=== PATIENT | male | born 1980 | race Two or more races ===

== ENCOUNTER → 2017-08-11 | Outpatient (REF) | payer OTHER | LOC: M SMT 12:15 | DX: Z30.2 Encounter for sterilization (principal) ==

== ENCOUNTER → 2017-10-08 | Outpatient (REF) | payer OTHER ==
[2017-10-08 14:03] LABS: IMMOTILE SPERM ABSENT (ABSENT); MOTILE SPERM ABSENT (ABSENT); MOTILE SPERM CENTRIFUGED ABSENT (ABSENT); SEMEN APPEARANCE OPAQUE (OPAQUE); SEMEN VISCOSITY VISCOUS (LIQUID); SEMEN VOLUME 1.1 ml (4.0-5.0); SEMEN pH 8.5 (7.0-8.0); WBC CONCENTRATION >1 M/ml (<=1 M/ml)
[2017-10-08 14:04] LABS: IMMMOTILE SPERM CENTRIFUGED PRESENT (ABSENT)
== END ==
LOC: M SMT 13:32
DX: Z98.52 Vasectomy status (principal)

== ENCOUNTER → 2017-11-03 | Outpatient (CLI) | payer OTHER | LOC: M RAD 14:30 | DX: J34.89 Other specified disorders of nose and nasal sinuses (principal) | CPT/HCPCS: 70486 ==

== ENCOUNTER → 2017-12-28 | Outpatient (REF) | payer OTHER, MEDICAID | LOC: M SFHCLERA 10:02 | DX: J02.9 Acute pharyngitis, unspecified (principal) ==

== ENCOUNTER → 2019-03-28 | Outpatient (CLI) | payer BC ==
[2019-03-28 19:57] LABS: LDH LACTATE DEHYDROGENASE 210 U/L (87-241)
== END ==
LOC: M PLALAB 14:10
PROVIDERS: ATTEND Nurse Practitioner Family
DX: N50.9 Disorder of male genital organs, unspecified (principal)

== ENCOUNTER → 2019-03-31 | Outpatient (CLI) | payer BC ==
--- NOTE | 2019-03-31 20:55 | REP ---
Scrotal sonography: History: Testicular lump, 1 year status post vasectomy. Lump times 1 week. Findings: High-resolution bilateral scrotal sonography shows no evidence of intratesticular mass lesion on either side. Right testis measures 4.4 x 2.7 x 3.2 cm. Left testicular dimensions are 4.5 x 2.8 x 2.9 cm. Adjacent to the epididymal tail in the right hemiscrotum there is a 9 x 10 x 9 mm well-defined solid appearing hyperechoic nodule corresponding to a palpable lump. There is a minimal right-sided hydrocele. No evidence of varicocele or hernia. Testicular Doppler flow is normal bilaterally. Resistive indices are 0.56 on the left and 0.71 on the right by Doppler. Impression: No intratesticular lesion is seen. There is a 10 mm extratesticular nodule adjacent the inferior pole of the epididymis on the right corresponding to the palpable abnormality. Question sperm granuloma. Electronically Signed by Jamie Wen MD 04/01/2019 07:59 A
== END ==
LOC: M RAD 14:20
PROVIDERS: ATTEND Nurse Practitioner Family
DX: N50.9 Disorder of male genital organs, unspecified (principal); N64.52 Nipple discharge; R92.2 Inconclusive mammogram

== ENCOUNTER 2020-12-30 17:50 | Emergency (ER) | payer BC ==
[~2020-12-30] VITALS: Ht 180.3 cm; Wt 112.8 kg
--- OUTSIDE RECORDS SUMMARY | 2020-12-30 17:57 | CCD ---
Author Author [facility] Organization [facility] Address Unknown Phone Unavailable Care Team Providers Care Purification Director Name Role Phone Berenice Lynn MD Unavailable Unavailable Berenice yLnn MD Unavailable Unavailable Berenice Lynn MD Unavailable Unavailable Berenice Lynn MD Unavailable Unavailable Berenice Lynn MD Unavailable Unavailable Berenice Lynn MD Unavailable Unavailable Berenice Lynn MD Unavailable Unavailable Berenice Lynn MD Unavailable Unavailable Berenice Lynn MD Unavailable Unavailable Berenice Lynn MD Unavailable Unavailable Berenice Lynn MD Unavailable Unavailable Berenice Lynn MD Unavailable Unavailable Berenice Lynn MD Unavailable Unavailable Berenice Lynn MD Unavailable Unavailable Berenice Lynn MD Unavailable Unavailable Berenice Lynn MD Unavailable Unavailable Berenice Lynn MD Unavailable Unavailable Berenice Lynn MD Unavailable Unavailable Berenice Lynn MD Unavailable Unavailable Berenice Lynn MD Unavailable Unavailable Berenice Lynn MD Unavailable Unavailable Berenice Lynn MD Unavailable Unavailable Berenice Lynn MD Unavailable Unavailable Berenice Lynn MD Unavailable Unavailable Berenice Lynn MD Unavailable Unavailable Benítez, M Christopher PA-C Unavailable Unavailable Benítez, M Christopher PA-C Unavailable Unavailable Benítez, M Christopher PA-C Unavailable Unavailable Benítez, M Christopher PA-C Unavailable Unavailable Benítez, M Christopher PA-C Unavailable Unavailable Benítez, M Christopher PA-C Unavailable Unavailable Benítez, M Christopher PA-C Unavailable Unavailable Benítez, M Christopher PA-C Unavailable Unavailable Benítez, M Christopher PA-C Unavailable Unavailable Benítez, M Christopher PA-C Unavailable Unavailable Benítez, M Christopher PA-C Unavailable Unavailable Benítez, M Christopher PA-C Unavailable Unavailable Benítez, M Christopher PA-C Unavailable Unavailable Benítez, M Christopher PA-C Unavailable Unavailable Benítez, M Christopher PA-C Unavailable Unavailable Benítez, M Christopher PA-C Unavailable Unavailable Benítez, M Christopher PA-C Unavailable Unavailable Benítez, M Christopher PA-C Unavailable Unavailable Benítez, M Christopher PA-C Unavailable Unavailable Benítez, M Christopher PA-C Unavailable Unavailable Benítez, M Christopher PA-C Unavailable Unavailable Benítez, M Christopher PA-C Unavailable Unavailable Benítez, M Christopher PA-C Unavailable Unavailable Benítez, M Christopher PA-C Unavailable Unavailable Benítez, M Christopher PA-C Unavailable Unavailable Benítez, M Christopher PA-C Unavailable Unavailable Re-disclosure Warning The records that you are about to access may contain information from federally-assisted alcohol or drug abuse programs. If such information is present, then the following federally mandated warning applies: This information has been disclosed to you from records protected by federal confidentiality rules (42 CFR part 2). The federal rules prohibit you from making any further disclosure of this information unless further disclosure is expressly permitted by the written consent of the person to whom it pertains or as otherwise permitted by 42 CFR part 2. A general authorization for the release of medical or other information is NOT sufficient for this purpose. The Federal rules restrict any use of the information to criminally investigate or prosecute any alcohol or drug abuse patient.The records that you are about to access may contain highly sensitive health information, the redisclosure of which is protected by Article 27-F of the [facility] Public Health law. If you continue you may have access to information: Regarding HIV / AIDS; Provided by facilities licensed or operated by the [facility] Office of Mental Health; or Provided by the [facility] Office for People With Developmental Disabilities. If such information is present, then the following [facility] mandated warning applies: This information has been disclosed to you from confidential records which are protected by state law. State law prohibits you from making any further disclosure of this information without the specific written consent of the person to whom it pertains, or as otherwise permitted by law. Any unauthorized further disclosure in violation of state law may result in a fine or senior care sentence or both. A general authorization for the release of medical or other information is NOT sufficient authorization for further disc losure. Family History Family Member Name Family Member Gender Family Member Status Date o f Status Description Data Source(s) Unknown Unknown Problem MEDENT ([facility], ) Unknown Male Problem [facility] ([facility] Encounters Encounter Providers Location Date Indications Data Source(s ) Outpatient Attender: Courtney Lynn MD 1 08:11:31 PM EDT - 12/20/2020 08:36:02 PM EDT [facility] [address] [facility] [id number] 08/16/2020 12:00:00 AM EDT eCW1 ([facility]) Unknown [address] [facility] [id number] 08/01/2020 12:00:00 AM EDT eCW1 ([facility]) Outpatient Attender: Nixon Benítez PA-C 06/17/2020 01:45:22 PM EDT - 06/17/2020 03:03:15 PM EDT [facility] ([facility]) Medications No Information Insurance Providers Payer name Policy type / Coverage type Policy ID Covered green party ID Covered green party's relationship to alvarez Policy Alvarez Plan Information [employer] [place] [employer] [id number] Self 1 [id number] [place] [employer] Commercial [id number] Self 1 [id number] [facility] [id number] Self 1 [id number] [facility] [id number] Self 1 [id number] [facility] [id number] Self 1 [id number] [employer] and Blue Shield - [place] Blue Cross/B lue Shield [id number] Self [id number] RPR- Needs Payer Match [id number] Self [id number] MEDICAID [id number] SP [id number] [facility] COMM[facility] [id number] SP [id number] BLUE CROSS BLUE SHIELD -O/P [id number] 18 [id number] ANSI-Medicaid [id number] ANSI-Commercial [id number] ANSI-Medicaid [id number] ANSI-Commercial [id number] [place]BS [place] PPO 302/307 [id number] SP [id number] ANSI-Medicaid [id number] ANSI-Commercial [id number] ANSI-Medicaid [id number] ANSI-Medicaid [id number] ANSI-Commercial [id number] ANSI-Medicaid [id number] ANSI-Medicaid [id number] FANY [id number] SP [id number] ANSI-Medicaid [id number] [facility] [id number] SP [id number] ANSI-Medicaid [id number] ANSI-Medicaid [id number] ANSI-Commercial [id number] ANSI-Medicaid [id number] ANSI-Medicaid [id number] ANSI-Commercial [id number] [facility] Health Maintenance Organization ([facility] [id number] Self [id number] [facility] O [id number] S [id number] BCBS [place] PPO 302/307 [id number] SP [id number] BCBS [facility] [id number] SP [id number] [facility] Health Maintenance Organization ([facility]) [id number] Self [id number] [employer] BCBS B [id number] S [id number] ANSI-Commercial [id number] Problems, Conditions, and Diagnoses No Information Surgeries/Procedures No Information Results ID Date Data Source [id number] 12/20/2020 08:30:00 PM EDT [facility] Name Value Range Interpretation Code Description Data Carina rce(s) Supporting Document(s) SARS-CoV-2 RNA Resp Ql [facility]+probe DETECTED [facility] This lab was ordered by NELLY tabor and reported by NELLY Rosa. ID Date Data Source [id number] 06/19/2020 01:51:00 PM EDT [facility] Name Value Range Interpretation Code Description Data Carina rce(s) Supporting Document(s) COVID-19 RT-PCR NASAL SWAB Not Detected Not Detected [employer] A not detected (negative) test result fo r this test means that SARS-CoV-2 RNA was not present in the specimen above the limit ofdetection. Laboratory test results should always be considered in thecontext of clinical observations and epidemiological data in making afinal diagnosis and patient management decisions. Results will bereported to government agencies as required.This test has received Emergency Use Authorization (EUA). We will continue to follow federal and state requirements for COVID-19 reporting. This test has been authorized only for the detection of RNAfrom SARS-CoV-2 virus and diagnosis of SARS-CoV-2 virus infection, notfor any other viruses or pathogens. This test is only authorized for the duration of the declaration that circumstances exist justifying the authorization of the emergency use of in vitro diagnostic tests for detection of SARS-CoV-2 virus and/or diagnosis of SARS-CoV-2 virusinfection under section 564(b)(1) of the Act, 21 U.S.C. section 360bbb-3(b)(1), unless the authorization is terminated or revoked sooner. We will continue to follow federal and state requirements for both notification of results and any confirmatory testing that is required by another agency. This test was developed and its performance characteristics determined by [employer] and verified at [employer]. It has not been cleared or approved by the U.S. Food and Drug Administration for diagnostic use. This test has been authorized by FDA under an EUA for use by authorized laboratories. Results should be used in conjunction with clinical findings, and should not form the sole basis for a diagnosis or treatment decision. Methods: SARS-CoV-2 Multiplex RT-PCR Assay ID Date Data Source [id number] 06/17/2020 02:00:00 PM EDT [facility] Name Value Range Interpretation Code Description Data Carina rce(s) Supporting Document(s) SARS-CoV-2 (COVID-19) N gene [Presence] in Respiratory specimen by ALLYSON with probe detection NEGATIVE [facility] This lab was ordered by [facility] and reported by [employer]. ID Date Data Source [id number] 06/17/2020 12:00:00 AM EDT [facility] Name Value Range Interpretation Code Description Data Carina rce(s) Supporting Document(s) Carestart Rapid COVID Antigen Test Negative [facility] This lab was reported by Onel arana. Procedure Social History Code Duration Value Status Description Data Source(s ) Smoking 08/16/2020 12:00:00 AM EDT Never Smoker completed Never S moker eCW1 ([facility]) Vital Signs ID Date Data Source UNK Name Value Range Interpretation Code Description Data Source(s) Body weight 250 [lb_av] 250 [lb_av] eCW1 ([facility]) Body height 71 [in_i] 71 [in_i] eCW1 ([facility]) Body mass index (BMI) [Ratio] 34.86 kg/m2 34.86 kg/m2 eCW1 ([facility]) Heart rate 72 /min 72 /min eCW1 ([facility]) Respiratory rate 18 /min 18 /min eCW1 ([facility]) Body temperature 96.6 [degF] 96.6 [degF] eCW1 ( [facility]) Systolic blood pressure 118 mm[Hg] 118 mm[Hg] e CW1 ([facility]) Diastolic blood pressure 80 mm[Hg] 80 mm[Hg] eCW1 ([facility])
[2020-12-30 20:46] VITALS: BP 124/72
--- OUTSIDE RECORDS SUMMARY | 2020-12-31 00:48 | CCD ---
Author Author [facility] Organization [facility] Address Unknown Phone Unavailable Care Team Providers Care Distiller Name Role Phone Berenice Lynn MD Unavailable Unavailable Berenice Lynn [...] is protected by Article 27-F of the [facility] Public Health law. If you continue you may have access to information: Regarding HIV / AIDS; Provided by facilities licensed or operated by the [facility] Office of Mental Health; or Provided by the [facility] Office for People With Developmental Disabilities. If such information is present, then the following [facility] mandated warning applies: This information has been [...] law may result in a fine or assisted sentence or both. A general authorization for the release of medical or other information is NOT sufficient authorization for further disc losure. Family History Family Member Name Family Member Gender Family Member Status Date o f Status Description Data Source(s) Unknown Unknown Problem MEDENT ([facility], ) Unknown Male Problem [facility]ENT ([facility] Encounters Encounter Providers Location Date Indications Data Source(s ) Outpatient Attender: Courtnye Lynn MD 1 08:11:31 PM EDT - 12/20/2020 08:36:02 PM EDT [facility] [address] [facility] [id number] 08/16/2020 12:00:00 AM EDT eCW1 ([facility]) Unknown [address] [facility] [address] 08/01/2020 12:00:00 AM EDT eCW1 ([facility]) Outpatient Attender: Nixon Benítez PA-C 06/17/2020 01:45:22 PM EDT - 06/17/2020 03:03:15 PM EDT [facility] ([facility]) Medications No Information Insurance Providers Payer name Policy type / Coverage type Policy ID Covered alliance party ID Covered alliance party's relationship to alvarez Policy Alvarez Plan Information [place] [employer] [id number] Self 1 [id number] [place] [employer] Commercial [id number] Self 1 [id number] [facility] [id number] Self 1 [id number] [facility] [id number] Self 1 [id number] [facility] [id number] Self 1 [id number] [facility] Blue [facility] and Blue Shield - [place] Blue Cross/B lue Shield [id number] Self [id number] RPR- Needs Payer Match [id number] Self [id number] BLUE CROSS BLUE SHIELD -O/P [id number] ANSI-Medicaid [id number] ANSI-Commercial [id number] ANSI-Medicaid [id number] ANSI-Commercial [id number] ANSI-Medicaid [id number] ANSI-Commercial [id number] ANSI-Medicaid [id number] ANSI-Medicaid [id number] BCBS [facility] HMO [id number] SP [id number] ANSI-Medicaid [id number] ANSI-Medicaid [id number] ANSI-Commercial [id number] ANSI-Medicaid [id number] [facility] COMMUNITY PLAN MCDO [id number] SP [id number] ANSI-Medicaid [id number] ANSI-Medicaid [id number] ANSI-Commercial [id number] ANSI-Medicaid [id number] ANSI-Medicaid [id number] ANSI-Commercial [id number] [facility] ([facility]) [id number] Self [id number] [facility] O [id number] S [id number] [facility] ([facility]) [id number] Self [id number] ANSI-Commercial [id number] BCBS [place] PPO 302/307 [id number] SP [id number] [employer] BCBS B [id number] S YNC [id number] BCBS [place] PPO 302/307 [id number] SP [id number] FANY [id number] SP [id number] MEDICAID [id number] SP [id number] [facility] [id number] SP [id number] Problems, Conditions, and Diagnoses No Information Surgeries/Procedures No Information Results ID Date Data Source [id number] 12/20/2020 08:30:00 PM EDT [facility] Name Value Range Interpretation Code Description Data Carina rce(s) Supporting Document(s) SARS-CoV-2 RNA Resp Ql ALLYSON+probe DETECTED [facility] This lab was ordered by NELLY tabor and reported by NELLY Rosa. ID Date Data Source [id number] 06/19/2020 01:51:00 PM EDT [facility] Name Value Range Interpretation Code Description Data Carina rce(s) Supporting Document(s) COVID-19 RT-PCR NASAL SWAB Not Detected Not Detected [employer] A not detected (negative) test result fo [...] developed and its performance characteristics determined by [employer] and verified at [employer]. It has not been cleared or approved by the U.S. Food and Drug Administration for diagnostic use. This test has been authorized by FDA under an EUA for use by authorized laboratories. Results should be used in conjunction with clinical findings, and should not form the sole basis for a diagnosis or treatment decision. Methods: SARS-CoV-2 Multiplex RT-PCR Assay ID Date Data Source [id number] 06/17/2020 02:00:00 PM EDT [facility] Name Value Range Interpretation Code Description Data Carina rce(s) Supporting Document(s) SARS-CoV-2 (COVID-19) N gene [Presence] in Respiratory specimen by ALLYSON with probe detection NEGATIVE [facility] This lab was ordered by [facility] and reported by [employer]. ID Date Data Source [id number] 06/17/2020 12:00:00 AM EDT [facility] Name Value Range Interpretation Code Description Data Carina rce(s) Supporting Document(s) Carestart Rapid COVID Antigen Test Negative [facility] This lab was reported by Onel arana. Procedure Social History Code Duration Value Status Description Data Source(s ) Smoking 08/16/2020 12:00:00 AM EDT Never Smoker completed Never S moker eCW1 ([facility]) Vital Signs ID Date Data Source UNK Name Value Range Interpretation Code Description Data Source(s) Body weight 250 [lb_av] 250 [lb_av] eCW1 ([facility]) Body height 71 [in_i] 71 [in_i] eCW1 ([facility]) Body mass index (BMI) [Ratio] 34.86 kg/m2 34.86 kg/m2 eCW1 ([facility]) Heart rate 72 /min 72 /min eCW1 ([facility]) Respiratory rate 18 /min 18 /min eCW1 ([facility]) Body temperature 96.6 [degF] 96.6 [degF] eCW1 ( [facility]) Systolic blood pressure 118 mm[Hg] 118 mm[Hg] e CW1 ([facility]) Diastolic blood pressure 80 mm[Hg] 80 mm[Hg] eCW1 ([facility])
== END 2020-12-31 00:17 | disposition left against medical advice (07) ==
LOC: M ED 17:50
DX: Z53.21 Procedure and treatment not carried out due to patient leaving prior to being seen by health care provider (principal)

== ENCOUNTER 2020-12-31 11:20 | Emergency (ER) | payer BC ==
[~2020-12-31] VITALS: Ht 180.3 cm; Wt 112.3 kg
--- OUTSIDE RECORDS SUMMARY | 2020-12-31 11:28 | CCD ---
Author Author [facility] Organization [facility] Address Unknown Phone Unavailable Care Team Providers Care Qa Tech Name Role Phone Berenice Lynn MD Unavailable [...] Unavailable Berenice Lynn MD Unavailable Unavailable Berenice Lnyn MD Unavailable Unavailable Berenice Lynn MD Unavailable Unavailable Benítze, M Christopher PA-C Unavailable Unavailable Benítez, M [...] is protected by Article 27-F of the [facility] [place] Public Health law. If you continue you may have access to information: Regarding HIV / AIDS; Provided by facilities licensed or operated by the [facility] [place] Office of Mental Health; or Provided by the [facility] [place] Office for People With Developmental Disabilities. If such information is present, then the following [facility] [place] mandated warning applies: This information has been [...] law may result in a fine or longterm sentence or both. A general authorization for the release of medical or other information is NOT sufficient authorization for further disc losure. Family History Family Member Name Family Member Gender Family Member Status Date o f Status Description Data Source(s) Unknown Unknown Problem MEDENT ([facility], ) Unknown Male Problem MEDENT ([facility] Encounters Encounter Providers Location Date Indications Data Source(s ) Outpatient Attender: Courtney Lynn MD 1 08:11:31 PM EDT - 12/20/2020 08:36:02 PM EDT [facility] Outpatient [address] [facility] [id number] 08/16/2020 12:00:00 AM EDT eCW1 ([facility]) Unknown [address] [facility] [id number] 08/01/2020 12:00:00 AM EDT eCW1 ([facility]) Outpatient Attender: Nixon Benítez PA-C 06/17/2020 01:45:22 PM EDT - 06/17/2020 03:03:15 PM EDT [facility] ([facility]) Medications No Information Insurance Providers Payer name Policy type / Coverage type Policy ID Covered green party ID Covered green party's relationship to alvarez Policy Alvarez Plan Information [place] [employer] [id number] Self 1 [id number] [place] [employer] [id number] Self 1 [id number] [facility] [id number] Self 1 [id number] [facility] [id number] Self 1 [id number] [facility] [id number] Self 1 [id number] [facility] Blue Cross and Blue Shield - [place] Blue Cross/B lue Shield [id number] Self [id number] RPR- Needs Payer Match [id number] Self [id number] [facility] [id number] BLUE CROSS BLUE SHIELD -O/P [id number] 18 [id number] ANSI-Medicaid [id number] ANSI-Commercial [id number] ANSI-Medicaid [id number] ANSI-Commercial [id number] ANSI-Medicaid [id number] ANSI-Commercial [id number] ANSI-Medicaid [id number] [place] PPO 302/307 [id number] ANSI-Commercial [id number] ANSI-Medicaid [id number] ANSI-Medicaid [id number] ANSI-Commercial [id number] ANSI-Medicaid [id number] [facility] [id number] ANSI-Medicaid [id number] ANSI-Medicaid [id number] ANSI-Commercial [id number] ANSI-Medicaid [id number] ANSI-Medicaid [id number] ANSI-[facility] [id number] [facility] Maintenance [facility] [place] [id number] Self [id number] [facility] O [id number] S [id number] [facility] Maintenance [facility] [place] [id number] Self [id number] [facility]-Medicaid [id number] BCBS RACHANA O [id number] SP [id number] [place] PPO 302/307 [id number] SP [id number] EX[place] BCBS B [id number] S YNC [id number] BCBS [place] PPO 302/307 [id number] SP [id number] FANY [id number] SP [id number] MEDICAID [id number] SP [id number] Problems, Conditions, and Diagnoses No Information Surgeries/Procedures No Information Results ID Date Data Source [id number] 12/20/2020 08:30:00 PM EDT PHYLLIS Name Value Range Interpretation Code Description Data Carina rce(s) Supporting Document(s) SARS-CoV-2 RNA Resp Ql ALLYSON+probe DETECTED [facility] This lab was ordered by NELLY tabor and reported by NELLY Rosa. ID Date Data Source [id number] 06/19/2020 01:51:00 PM EDT [facility] Name Value Range Interpretation Code Description Data Carina rce(s) Supporting Document(s) COVID-19 RT-PCR NASAL SWAB Not Detected Not Detected [place] [employer] A not detected (negative) test result fo [...] developed and its performance characteristics determined by [employer] and verified at [facility]. It has not been cleared or approved by the U.S. Food and Drug Administration for diagnostic use. This test has been authorized by FDA under an EUA for use by authorized laboratories. Results should be used in conjunction with clinical findings, and should not form the sole basis for a diagnosis or treatment decision. Methods: SARS-CoV-2 Multiplex RT-PCR Assay ID Date Data Source [id number] 06/17/2020 02:00:00 PM EDT [facility] Name Value Range Interpretation Code Description Data Carina rce(s) Supporting Document(s) SARS-CoV-2 (COVID-19) N gene [Presence] in Respiratory specimen by ALLYSON with probe detection NEGATIVE [facility] This lab was ordered by [facility] and reported by [facility]. ID Date Data Source [id number] 06/17/2020 12:00:00 AM EDT [facility] Name Value Range Interpretation Code Description Data Carina rce(s) Supporting Document(s) [facility] Rapid COVID Antigen Test Negative [facility] This lab was reported by Onel ar[facility]. Procedure Social History Code Duration Value Status Description Data Source(s ) Smoking 08/16/2020 12:00:00 AM EDT Never Smoker completed Never S moker eCW1 ([facility]) Vital Signs ID Date Data Source UNK Name Value Range Interpretation Code Description Data Source(s) Body weight 250 [lb_av] 250 [lb_av] eCW1 ([facility]) Body height 71 [in_i] 71 [in_i] eCW1 ([facility]) Body mass index (BMI) [Ratio] 34.86 kg/m2 34.86 kg/m2 eCW1 ([facility]) Heart rate 72 /min 72 /min eCW1 ([facility]) Respiratory rate 18 /min 18 /min eCW1 ([facility]) Body temperature 96.6 [degF] 96.6 [degF] eCW1 ( [facility]) Systolic blood pressure 118 mm[Hg] 118 mm[Hg] e CW1 ([facility]) Diastolic blood pressure 80 mm[Hg] 80 mm[Hg] eCW1 ([facility])
[2020-12-31] MEDS ORDERED: NS 1,000 ML IV ONE (17:15)
--- OUTSIDE RECORDS SUMMARY | 2020-12-31 17:29 | CCD ---
Author Author [facility] Organization [facility] Address Unknown Phone Unavailable Care Team Providers Care Inspector Repairer Name Role Phone Berenice Lynn MD Unavailable [...] is protected by Article 27-F of the [facility] Public Health law. If you continue you may have access to information: Regarding HIV / AIDS; Provided by facilities licensed or operated by the [facility] Office of Mental Health; or Provided by the [facility] Office for People With Developmental Disabilities. If such information is present, then the following [facility] mandated warning applies: This information has [...] law may result in a fine or fpc sentence or both. A general authorization for the release of medical or other information is NOT sufficient authorization for further disc losure. Family History Family Member Name Family Member Gender Family Member Status Date o f Status Description Data Source(s) Unknown Unknown Problem MEDENT ([facility], ) Unknown Male Problem MEDENT ([facility] Encounters Encounter Providers Location Date Indications Data Source(s ) Outpatient Attender: Courtney Lynn MD 1 08:11:31 PM EDT - 12/20/2020 08:36:02 PM EDT [facility] Outpatient [address] [facility] [id number] 08/16/2020 12:00:00 AM EDT eCW1 ([facility]) Unknown [address] [facility] [address] 08/01/2020 12:00:00 AM EDT eCW1 ([facility]) Outpatient Attender: Nixon Benítez PA-C 06/17/2020 01:45:22 PM EDT - 06/17/2020 03:03:15 PM EDT [facility] ([facility]) Medications No Information Insurance Providers Payer name Policy type / Coverage type Policy ID Covered republican ID Covered republican's relationship to alvarez Policy Alvarez Plan Information [employer] [id number] Self 1 [id number] [employer] [place] [id number] Self 1 [id number] [facility] [id number] Self 1 [id number] [facility] [id number] Self 1 [id number] [facility] [id number] Self 1 [id number] [facility] Blue Cross and Blue Shield - [place] Blue Cross/B lue Shield [id number] Self [id number] RPR- Needs Payer Match [id number] Self [id number] [facility] [id number] BLUE CROSS BLUE SHIELD -O/P [id number] 18 [id number] ANSI-Medicaid [id number] ANSI-Commercial [id number] ANSI-Medicaid [id number] ANSI-Commercial [id number] ANSI-Medicaid [id number] ANSI-Commercial [id number] ANSI-Medicaid [id number] BCBS RACHANA HMO [id number] SP [id number] ANSI-Commercial [id number] ANSI-Medicaid [id number] ANSI-Medicaid [id number] ANSI-Commercial [id number] ANSI-Medicaid [id number] [facility] [id number] ANSI-Medicaid [id number] ANSI-Medicaid [id number] ANSI-Commercial [id number] ANSI-Medicaid [id number] ANSI-Medicaid [id number] ANS-[facility] [id number] [facility] ([facility] [id number] Self [id number] [facility] O [id number] S [id number] [facility] ([facility] [id number] Self [id number] [facility]-Medicaid [id number] BCBS [place] PPO 302/307 [id number] SP [id number] BCBS [place] PPO 302/307 [id number] SP [id number] EXCELLUS BCBS B [id number] S YNC [id number] BCBS [place] PPO 302/307 [id number] SP [id number] FANY [id number] SP [id number] 900 MEDICAID [id number] SP [id number] Problems, Conditions, and Diagnoses No Information Surgeries/Procedures No Information Results ID Date Data Source [id number] 12/20/2020 08:30:00 PM EDT [facility] Name Value Range Interpretation Code Description Data Carina rce(s) Supporting Document(s) SARS-CoV-2 RNA Resp Ql ALLYSON+probe DETECTED [place] This lab was ordered by NELLY tabor and reported by NELLY Rosa. ID Date Data Source [id number] 06/19/2020 01:51:00 PM EDT [facility] Name Value Range Interpretation Code Description Data Carina rce(s) Supporting Document(s) COVID-19 RT-PCR NASAL SWAB Not Detected Not Detected [place] [employer] ([employer]) A not detected (negative) test result fo [...] developed and its performance characteristics determined by [employer] and verified at [facility]. It has not been cleared or approved by the U.S. Food and Drug Administration for diagnostic use. This test has been authorized by FDA under an EUA for use by authorized laboratories. Results should be used in conjunction with clinical findings, and should not form the sole basis for a diagnosis or treatment decision. Methods: SARS-CoV-2 Multiplex RT-PCR Assay ID Date Data Source [id number] 06/17/2020 02:00:00 PM EDT [facility] Name Value Range Interpretation Code Description Data Carina rce(s) Supporting Document(s) SARS-CoV-2 (COVID-19) N gene [Presence] in Respiratory specimen by ALLYSON with probe detection NEGATIVE [facility] This lab was ordered by [facility] and reported by [facility]. ID Date Data Source [id number] 06/17/2020 12:00:00 AM EDT [facility] Name Value Range Interpretation Code Description Data Carina rce(s) Supporting Document(s) Carestart Rapid COVID Antigen Test Negative [facility] This lab was reported by On[facility]. Procedure Social History Code Duration Value Status Description Data Source(s ) Smoking 08/16/2020 12:00:00 AM EDT Never Smoker completed Never S moker eCW1 ([facility]) Vital Signs ID Date Data Source UNK Name Value Range Interpretation Code Description Data Source(s) Body weight 250 [lb_av] 250 [lb_av] eCW1 ([facility]) Body height 71 [in_i] 71 [in_i] eCW1 ([facility]) Body mass index (BMI) [Ratio] 34.86 kg/m2 34.86 kg/m2 eCW1 ([facility]) Heart rate 72 /min 72 /min eCW1 ([facility]) Respiratory rate 18 /min 18 /min eCW1 ([facility]) Body temperature 96.6 [degF] 96.6 [degF] eCW1 ( [facility]) Systolic blood pressure 118 mm[Hg] 118 mm[Hg] e CW1 ([facility]) Diastolic blood pressure 80 mm[Hg] 80 mm[Hg] eCW1 ([facility])
[2020-12-31 18:16] LABS: BASO # 0.1 10^3/uL (0.0-0.2); BASO % 0.8 % (0.0-1.0); EOS # 0.2 10^3/uL (0.0-0.5); EOS % 2.8 % (0.0-3.0); HEMATOCRIT 45.6 % (42.0-52.0); HEMOGLOBIN 14.7 g/dl (13.5-17.5); LYMPH # 3.1 10^3/uL (1.5-5.0); LYMPH % 36.1 % (24.0-44.0); MEAN CORPUSCULAR HEMOGLOBIN 27.5 pg (27.0-33.0); MEAN CORPUSCULAR HGB CONC 32.2 g/dl (32.0-36.5); MEAN CORPUSCULAR VOLUME 85.2 fl (80.0-96.0); MONO # 0.9 10^3/uL (0.0-0.8); MONO % 10.4 % (2.0-8.0); NEUTROPHILS # 4.1 10^3/uL (1.5-8.5); PLATELET COUNT, AUTOMATED 335 10^3/uL (150-450); RED BLOOD COUNT 5.35 10^6/uL (4.30-6.10); WHITE BLOOD COUNT 8.7 10^3/uL (4.0-10.0)
[2020-12-31 18:25] LABS: INR 0.97; PROTHROMBIN TIME 13.3 SECONDS (12.7-14.5)
[2020-12-31 18:28] LABS: D-DIMER QUANT 293.9 ng/ml (<500)
[2020-12-31 18:29] LABS: ALBUMIN 3.3 GM/DL (3.2-5.2); ALT/SGPT 58 U/L (12-78); BILIRUBIN,TOTAL 0.4 MG/DL (0.2-1.0); BLOOD UREA NITROGEN 15 MG/DL (7-18); CALCIUM LEVEL 8.4 MG/DL (8.5-10.1); CARBON DIOXIDE LEVEL 29 MEQ/L (21-32); CHLORIDE LEVEL 107 MEQ/L (98-107); CK-MB VALUE MASS 1.2 NG/ML (<3.6); CPK CREATINE PHOSPHOKINASE 76 U/L (39-308); CREATININE FOR GFR 0.96 MG/DL (0.70-1.30); FERRITIN 420 NG/ML (26-388); GLOMERULAR FILTRATION RATE > 60.0 (>60); GLUCOSE, FASTING 85 MG/DL (70-100); LDH LACTATE DEHYDROGENASE 209 U/L (87-241); MAGNESIUM LEVEL 2.4 MG/DL (1.8-2.4); MB/CK RELATIVE INDEX 1.58 (< OR =4); POTASSIUM SERUM 4.3 MEQ/L (3.5-5.1); SODIUM LEVEL 140 MEQ/L (136-145); TOTAL PROTEIN 6.9 GM/DL (6.4-8.2); TROPONIN I < 0.02 NG/ML (< 0.10)
--- NOTE | 2020-12-31 19:17 | REP ---
INDICATION: pain. COMPARISON: None. TECHNIQUE: Three views of the right shoulder were performed. FINDINGS: The acromioclavicular and glenohumeral relationships are within normal limits. There is no acute fracture or destructive osseous lesion. IMPRESSION: Within normal limits <Electronically signed by Doni Waters > 12/31/20 [id number]
[2020-12-31 19:31] VITALS: BP 114/62
--- NOTE | 2021-01-01 13:34 | ECGEPIP ---
[facility] - ED Test Date: 2020-12-31 Pat Name: ARIN [place] Department: Room: - Gender: Male Manager Presentation: LUAN : 1980 Requested By: ANA ROSA SHIELDS PA-C Order Number: [id number] Reading MD: Zeinab Stapleton Measurements Intervals [place] Rate: 78 P: 27 NM: 148 QRS: -16 QRSD: 102 T: -11 QT: 392 QTc: 446 Interpretive Statements Normal sinus rhythm prwp NSTTW abnormalities No prior Electronically Signed on 01-01-2021 13:34:04 EDT by Zeinab Stapleton
== END 2020-12-31 19:40 | disposition home or self-care (01) ==
LOC: M ED 11:20
DX: U09.9 Post COVID-19 condition, unspecified (principal); M25.50 Pain in unspecified joint; R51.9 Headache, unspecified

== ENCOUNTER → 2021-01-16 | Outpatient (CLI) | payer BC ==
--- NOTE | 2021-01-16 13:17 | REP ---
INDICATION: POST COVID COUGH AND CHEST DISCOMFORT. COMPARISON: None. TECHNIQUE: PA and lateral FINDINGS: The superior mediastinal structures are midline. The cardiac silhouette is unremarkable in size, shape, and position. The diaphragmatic surfaces of the lungs are regular, and the costophrenic angles are clear. The pulmonary thurman are clear. The imaged osseous structures are intact. IMPRESSION: There is no acute cardiopulmonary disease. <Electronically signed by Doni Waters > 01/16/21 8769
== END ==
LOC: M WUC 12:59
PROVIDERS: ATTEND Physician Assistant
DX: R05.1 Acute cough (principal)

== ENCOUNTER → 2023-02-09 | Outpatient (CLI) | payer OTHER ==
[2023-02-09 13:09] LABS: ABG BASE EXCESS -2.1 (-2.0-2.0); ABG HCO3 21.7 MMOL/L (22.0-26.0); ABG O2 SATURATION 96.7 % (95.0-99.0); ABG PARTIAL PRESSURE CO2 34.9 mmHg (35.0-45.0); ABG PARTIAL PRESSURE O2 81.2 mmHg (75.0-100.0); ABG STANDARD HCO3 22.7 MMOL/L. (22.0-26.0); ABG TOTAL CO2 22.8 MMOL/L (22.0-29.0); ABG pH (ARTERIAL) 7.412 UNITS (7.350-7.450)
== END ==
LOC: M LAB 12:33
PROVIDERS: ATTEND Internal Medicine Pulmonary Disease
DX: J45.991 Cough variant asthma (principal)

== ENCOUNTER → 2023-06-29 | Outpatient (CLI) | payer OTHER | LOC: M SLEEP HO 10:33 | PROVIDERS: ATTEND Internal Medicine Pulmonary Disease | DX: R06.83 Snoring (principal) ==

== ENCOUNTER 2023-12-20 15:17 | Emergency (ER) | payer OTHER ==
[~2023-12-20] VITALS: Ht 177.8 cm; Wt 121.6 kg
[2023-12-20 15:54] LABS: BASO % 0.3 % (0.0-1.0); EOS # 0.2 10^3/uL (0.0-0.5); EOS % 1.7 % (0.0-3.0); HEMATOCRIT 41.6 % (42.0-52.0); HEMOGLOBIN 13.8 g/dl (13.5-17.5); MEAN CORPUSCULAR HEMOGLOBIN 28.3 pg (27.0-33.0); MEAN CORPUSCULAR HGB CONC 33.2 g/dl (32.0-36.5); MEAN CORPUSCULAR VOLUME 85.4 fl (80.0-96.0); MONO # 0.4 10^3/uL (0.0-0.8); MONO % 4.3 % (2.0-8.0); NEUTROPHILS # 6.2 10^3/uL (1.5-8.5); NEUTROPHILS % 63.1 % (36.0-66.0); PLATELET COUNT, AUTOMATED 279 10^3/uL (150-450); RED BLOOD COUNT 4.87 10^6/uL (4.30-6.10); WHITE BLOOD COUNT 9.9 10^3/uL (4.0-10.0)
[2023-12-20 16:08] LABS: INR 1.07; PARTIAL THROMBOPLASTIN TIME 27.8 SECONDS (24.8-34.2); PROTHROMBIN TIME 13.6 SECONDS (12.5-14.5)
[2023-12-20 16:17] LABS: LIPASE 36 U/L (12-53)
[2023-12-20 16:19] LABS: ALBUMIN 3.8 G/DL (3.2-5.2); ALKALINE PHOSPHATASE 85 U/L (46-116); ALT/SGPT 44 U/L (7.0-40); AST/SGOT 15 U/L (<34); BILIRUBIN,DIRECT < 0.1 MG/DL (<0.4); BILIRUBIN,TOTAL 0.3 MG/DL (0.3-1.2); BLOOD UREA NITROGEN 15 MG/DL (9-23); CALCIUM LEVEL 9.1 MG/DL (8.5-10.1); CARBON DIOXIDE LEVEL 28 MMOL/L (20-31); CHLORIDE LEVEL 104 MMOL/L (98-107); CK-MB VALUE MASS < 1.0 NG/ML (<3.6); CPK CREATINE PHOSPHOKINASE 176 U/L (46-171); CREATININE FOR GFR 0.97 MG/DL (0.70-1.30); GLOMERULAR FILTRATION RATE > 60.0 (>60); GLUCOSE, FASTING 162 MG/DL (60-100); MB/CK RELATIVE INDEX 0.56 (< OR =4); POTASSIUM SERUM 4.1 MMOL/L (3.5-5.1); SODIUM LEVEL 140 MMOL/L (136-145); TOTAL PROTEIN 6.9 G/DL (5.7-8.2)
[2023-12-20 16:23] LABS: FREE T4 1.27 NG/DL (0.89-1.76)
[2023-12-20 16:24] LABS: THYROID STIMULATING HORMONE 2.493 uIU/ML (0.55-4.78)
[2023-12-20] MEDS ORDERED: ISOVUE-370 76% 100ML VIAL As Ordered ONE (17:18)
[2023-12-20] MEDS: ASPIRIN 81MG CHEW TABLET PO ONE (17:28)
[2023-12-20 18:12] LABS: CK-MB VALUE MASS < 1.0 NG/ML (<3.6)
[2023-12-20 18:33] LABS: CPK CREATINE PHOSPHOKINASE 172 U/L (46-171); MB/CK RELATIVE INDEX 0.58 (< OR =4)
[2023-12-20 19:30] VITALS: BP 118/64
[2023-12-20 19:49] VITALS: TEMP 98.5; O2SAT 97
== END 2023-12-20 20:02 | disposition home or self-care (01) ==
LOC: M ED 15:17
DX: R07.9 Chest pain, unspecified (principal); R00.0 Tachycardia, unspecified; G47.30 Sleep apnea, unspecified
CPT/HCPCS: 36415; 71045; 71275; 80048; 80076; 82550; 82553; 83690; 84439; 84443; 84484; 85025; 85610; 85730; 93005; 93041; 93970; 94760; 99285; Q9967

== ENCOUNTER → 2024-04-05 | Outpatient (CLI) | payer OTHER | LOC: M PLAIMG 11:59 | PROVIDERS: ATTEND Otolaryngology | DX: J32.0 Chronic maxillary sinusitis (principal); J33.8 Other polyp of sinus ==